=== PATIENT | female | born 1960 | race Caucasian/White ===

== ENCOUNTER → 2019-09-01 11:03 | Outpatient (CLI) | payer OTHER, SELFPAY ==
--- NOTE | ~2019-09-01 | MM_ITS ---
EXAMINATION: MM screening [facility] HISTORY: Screening mammogram TECHNIQUE: Craniocaudal and mediolateral oblique 3-D tomosynthesis images were obtained and synthetic 2-D images were generated. CAD analysis was submitted and interpreted. COMPARISON: Comparison to multiple prior studies sequentially, with oldest reviewed study dated 07/13. BREAST PARENCHYMAL COMPOSITION: The breasts are heterogeneously dense, which may obscure small masses . FINDINGS: There is no evidence of suspicious mass, calcification, or architectural distortion to sugg est malignancy in either breast. There has been no suspicious interval change. IMPRESSION: 1. No mammographic evidence of malignancy. 2. Recommend routine screening mammography in one year. BI-RADS Category 1: Negative Reviewed, dictated and finalized at location A.
== END ==
PROVIDERS: Visit Provider Obstetrics & Gynecology
DX: Z12.31 Encounter for screening mammogram for malignant neoplasm of breast (principal)
CPT/HCPCS: 77063; 77067

== ENCOUNTER → 2020-09-01 17:36 | Outpatient (CLI) | payer OTHER, SELFPAY ==
--- NOTE | ~2020-09-01 | DEXA_ITS ---
Bone Density Report Name: Marguerite Alanis Age: 60 Sex: Female Ethnicity: White Date of : 1960 Indication: osteopenia; height loss; postmenopausal Referring Provider: IRINA DE Study: Bone densitometry was performed. Exam Date: September 01, 2020 Accession number: [id number] Bone Density: Region BMD T-score Z-score Classification AP Spine (L1, L4) 0.898 -1.3 0.2 Osteopenia Femoral Neck (Left) 0.820 -0.3 1.0 Normal Total Hip (Left) 0.797 -1.2 -0.2 Osteopenia Femoral Neck (Right) 0.735 -1.0 0.3 Normal Total Hip (Right) 0.801 -1.2 -0.2 Osteopenia Total Hip Mean 0.799 -1.2 -0.2 Osteopenia World Health Organization criteria for BMD impression classify patients as: Normal (T-score at or above -1.0), Osteopenia (T-score between -1.0 and -2.5), or Osteoporosis (T-score at or below -2.5). 10-year Fracture Risk(1): Major Osteoporotic Fracture 6.8% Hip Fracture 0.4% Reported Risk Factors: [place] (), Neck BMD=0.735, BMI=22.5 (1) FRAX(R) Version 3.08. Fracture probability calculated for an untreated patient. Fracture probability may be lower if the patient has received treatment. Previous Exams: Region Exam Age BMD T-score BMD Change BMD Change Date g/cm2 vs Baseline vs Previous AP Spine(L1, L4) 09/01/2020 60 0.898 -1.3 0.001 0.001 08/09/2018 58 0.897 -1.3 Total Hip(Left) 09/01/2020 60 0.797 -1.2 -0.010 -0.010 08/09/2018 58 0.807 -1.1 Total Hip(Right) 09/01/2020 60 0.801 -1.2 -0.004 -0.004 08/09/2018 58 0.806 -1.1 *Denotes significance at 95% confidence level, LSC for AP Spine = 0.022 g/cm2, LSC for Total Hip = 0.027 g/cm2 Clinical Information Provided by Patient: Has used the following medications: Vitamin D, Calcium Patient maximum height was 66 Menopause Age: 53 No regular weight bearing exercise Drinks caffeinated beverages Onset of menses at age 16 Number of children 2 Missed period for more than 6 months in a row Impression: The patient has low bone mass, based on the Total Spine T-score. The patient has an estimated ten-year risk of hip fracture of 0.4% and an estimated ten-year risk of major fracture of 6.8%, based on the WHO FRAX algorithm. No significant bone loss was observed. Discussion: BONE DENSITY IS LOW AT ONE OR MORE SKELETAL SITES. This patient's lowest T-score is low at one or more skeletal sites. It meets the World Health Organ
== END ==
PROVIDERS: Visit Provider Obstetrics & Gynecology
DX: M85.88 Other specified disorders of bone density and structure, other site (principal); M85.852 Other specified disorders of bone density and structure, left thigh; M85.851 Other specified disorders of bone density and structure, right thigh
CPT/HCPCS: 77080

== ENCOUNTER → 2020-09-30 15:28 | Outpatient (CLI) | payer OTHER, SELFPAY ==
--- NOTE | ~2020-09-30 | MM_ITS ---
EXAMINATION: MM screening [facility] BI w umer HISTORY: Screening TECHNIQUE: Craniocaudal and mediolateral oblique 3-D tomosynthesis images were obtained and synthetic 2-D images were generated. CAD analysis was submitted and interpreted. COMPARISON: Comparison to multiple prior studies sequentially, with oldest reviewed study dated 07/2015. BREAST PARENCHYMAL COMPOSITION: There are scattered areas of fibroglandular density. FINDINGS: There is no evidence of suspicious mass, calcification, or architectural distortion to sugg est malignancy in either breast. There has been no suspicious interval change. IMPRESSION: 1. No mammographic evidence of malignancy. 2. Recommend routine screening mammography in one year. BI-RADS Category 1: Negative Reviewed, dictated and finalized at location A.
== END ==
PROVIDERS: Visit Provider Nurse Practitioner
DX: Z12.31 Encounter for screening mammogram for malignant neoplasm of breast (principal)
CPT/HCPCS: 77063; 77067

== ENCOUNTER → 2020-11-29 00:50 | Outpatient (CLI) | payer OTHER, SELFPAY ==
[2020-11-29 17:24] LABS: SARS-CoV-2 RNA PCR Negative
== END ==
PROVIDERS: PCP Family Medicine; Visit Provider Internal Medicine Gastroenterology
DX: Z01.812 Encounter for preprocedural laboratory examination (principal); Z20.822 Contact with and (suspected) exposure to COVID-19
CPT/HCPCS: C9803; U0003; U0005

== ENCOUNTER 2020-12-02 00:02 | Day surgery (SDC) | payer OTHER, SELFPAY ==
[2020-11-18 14:39] VITALS: BMI 20.5
[2020-12-02 06:20] VITALS: BP 97/68; PULSE 73; RESP 16; TEMP 36.8; O2SAT 100; BMI 20.1
[2020-12-02] MEDS: LACTATED RINGERS 1,000 ML 150 ML IV CONT (06:30)
--- NOTE | 2020-12-02 07:19 | WPDANESEPPF ---
Anes - Initial Pre Proc Eval Procedure: Operation Date: 12/02/20 07:30 Proposed Procedures p Screening Colonoscopy - Ye Pennington MD Date/Time: 12/02/20 07:19 Surgeon: Ye Pennington MD Pre Op Diagnosis: neoplasm screening Patient Data Age: 60 Gender: F Height: 5 ft 5 in Weight: 55 kg Last Vital Signs Temp 98.3 F 12/02/20 06:20 Pulse 73 12/02/20 06:20 Resp 16 12/02/20 06:20 BP 97/68 L 12/02/20 06:20 Pulse Ox 100 12/02/20 06:20 Allergies Allergy/AdvReac Type Severity Reaction Status Date / Time rabies vaccine, duck-embryo Allergy Intermediate Anaphylactic Verified 12/02/20 06:19 Shock Home Medications Medication Instructions Recorded Confirmed Type turmeric root extract 500 mg 500 mg PO DAILY 05/06/19 11/18/20 History capsule Adults Multivitamin 1 tab-cap PO DAILY 11/18/20 11/18/20 History Calcium 600 + D(3) 2 tab-cap PO DAILY 11/18/20 11/18/20 History biotin 10,000 mcg PO DAILY 11/18/20 11/18/20 History cholecalciferol (vitamin D3) 25 mcg PO DAILY 11/18/20 11/18/20 History [Vitamin D3] magnesium oxide 400 mg PO DAILY 11/18/20 11/18/20 History Patient hx anesthesia problems: none Family hx anesthesia problems: none PMFSH Past Medical History Medical History (Updated 12/02/20 @ 07:19 by Moisés Greenberg MD) Acute non-recurrent maxillary sinusitis Anxiety Contact dermatitis due to plant Family history of cardiomyopathy Fever blister Mild aortic valve regurgitation asymptomatic Mild mitral valve regurgitation asymptomatic; family history of Plantar fasciitis Seasonal allergic rhinitis Vitamin D insufficiency Family History Family History (Updated 10/13/18 @ 15:51 by DOCTOR UNKNOWN) Sibling Family history of gastrointestinal disorder Patient's sister is in good health Mother Patient's mother is , Onset Age: 70 Family history of lung cancer Father Acute myocardial infarction, Onset Age: 60 Grandparent Acute myocardial infarction, Onset Age: 76 Family history of Alzheimer's disease, Onset Age: 78 Social History Social History Smoking status: Never smoker Alcohol intake: current Drinks per week: 2 Substance use: never Substance use type: does not use Living arrangements: with family Spiritual care concerns: No Anes - Eval Final PreProcedure Day of Procedure 12/02/20 07:19 Patient weight: normal Heart: regular rate and rhythm Lungs: clear to auscultation Airway: Mallampati scale class II Neurological: alert and oriented Last oral intake: >/= 8 hours ASA classification: II Emergent: no Anesthetic plan: proceed Anesthesia type and monitoring: general GIVS and standard monitoring Informed Consent: The patient's anesthetic plan and its attendant risks and benefits were discussed with the patient/family/POA. Questions were solicited and answers provided to the satisfaction of the patient/family/POA.
[2020-12-02 07:44] VITALS: BP 96/59; PULSE 70; RESP 20; O2SAT 99
--- NOTE | 2020-12-02 07:47 | PM.HPGS ---
History of Present Illness History of Present Illness Consent: Risks, benefits, and alternatives have been discussed and questions answered. Patient agrees to proceed with procedure. Chief complaint: neoplasm screening Narrative: Marguerite Alanis is a 60 year old female referred for colon cancer screening. Review of Systems Review of Systems: All systems reviewed & are unremarkable except as noted in HPI and below PMFSH Past Medical History Medical History Acute non-recurrent maxillary sinusitis Anxiety Contact dermatitis due to plant Family history of cardiomyopathy Fever blister Mild aortic valve regurgitation asymptomatic Mild mitral valve regurgitation asymptomatic; family history of Plantar fasciitis Seasonal allergic rhinitis Vitamin D insufficiency Family History Family History Sibling Family history of gastrointestinal disorder Patient's sister is in good health Mother Patient's mother is , Onset Age: 70 Family history of lung cancer Father Acute myocardial infarction, Onset Age: 60 Grandparent Acute myocardial infarction, Onset Age: 76 Family history of Alzheimer's disease, Onset Age: 78 Social History Social History Smoking status: Never smoker Alcohol intake: current Drinks per week: 2 Substance use: never Substance use type: does not use Living arrangements: with family Spiritual care concerns: No Meds Home Medications and Allergies Home Medications Medication Instructions Recorded Confirmed Type turmeric root extract 500 mg 500 mg PO DAILY 05/06/19 11/18/20 History capsule Adults Multivitamin 1 tab-cap PO DAILY 11/18/20 11/18/20 History Calcium 600 + D(3) 2 tab-cap PO DAILY 11/18/20 11/18/20 History biotin 10,000 mcg PO DAILY 11/18/20 11/18/20 History cholecalciferol (vitamin D3) 25 mcg PO DAILY 11/18/20 11/18/20 History [Vitamin D3] magnesium oxide 400 mg PO DAILY 11/18/20 11/18/20 History Allergies Allergy/AdvReac Type Severity Reaction Status Date / Time rabies vaccine, duck-embryo Allergy Intermediate Anaphylactic Verified 12/02/20 06:19 Shock Vital Signs Vital Signs - 24 hr 12/02/20 06:20 Temperature 36.8 C Pulse Rate 73 Respiratory Rate 16 Blood Pressure 97/68 L Pulse Oximetry 100 Exam Resp: Auscultation: clear to auscultation bilaterally Cardio: Rate: regular rate Rhythm: regular rhythm GI: GI Palp: Yes Soft to palpation and No Tenderness to palpation present (GI) Assessment and Plan Assessment and plan (1) Colon cancer screening: Code(s): Z12.11 - Encounter for screening for malignant neoplasm of colon Status: Acute Assessment and Plan: Colonoscopy with possible biopsy or polypectomy or cautery or injection of substances.
[2020-12-02 07:54] VITALS: BP 96/66; PULSE 65; RESP 20; O2SAT 100
[2020-12-02 08:01] VITALS: BP 107/74; PULSE 64; RESP 18; O2SAT 100
== END 2020-12-02 08:20 | disposition home health service (06) ==
PROVIDERS: PCP Family Medicine; Visit Provider Internal Medicine Gastroenterology
PROC: 0DJD8ZZ Inspection of Lower Intestinal Tract, Via Natural or Artificial Opening Endoscopic (ICD-10-PCS; CPT 45378; principal; 2020-12-02 07:30)
DX: Z12.11 Encounter for screening for malignant neoplasm of colon (principal); F41.9 Anxiety disorder, unspecified; I35.1 Nonrheumatic aortic (valve) insufficiency; I34.0 Nonrheumatic mitral (valve) insufficiency; M72.9 Fibroblastic disorder, unspecified; E55.9 Vitamin D deficiency, unspecified
CPT/HCPCS: 45378; C9803; J2704; J7120; U0003; U0005

== ENCOUNTER → 2021-06-23 11:24 | Outpatient (CLI) | payer OTHER, SELFPAY ==
--- NOTE | ~2021-06-23 | XR_ITS ---
EXAMINATION: XR knee LT 2V DATE: 06/23/2021 11:44 INDICATION: Arthritis. Left knee pain. TECHNIQUE: 2 views of left knee standing were obtained. COMPARISON: None. FINDINGS: Bone alignment is normal. No fracture. Joint spaces are well maintained. There is no knee j oint effusion. IMPRESSION: 1. Normal left knee. Reviewed, dictated and finalized at location A. 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 Normal left knee.
== END ==
PROVIDERS: PCP Internal Medicine; Visit Provider Internal Medicine
DX: M17.12 Unilateral primary osteoarthritis, left knee (principal)
CPT/HCPCS: 73560

== ENCOUNTER → 2021-11-27 13:49 | Outpatient (CLI) | payer OTHER, SELFPAY ==
--- NOTE | ~2021-11-27 | MM_ITS ---
EXAMINATION: MM screening [facility] w [facility] HISTORY: Screening TECHNIQUE: Craniocaudal and mediolateral oblique 3-D tomosynthesis images were obtained and synthetic 2-D images were generated. CAD analysis was submitted and interpreted. COMPARISON: Comparison to multiple prior studies sequentially, with oldest reviewed study dated 11/2016. BREAST PARENCHYMAL COMPOSITION: The breasts are heterogenously dense, which may obscure small masses FINDINGS: There is no evidence of suspicious mass, calcification, or architectural distortion to sugg est malignancy in either breast. There has been no suspicious interval change. IMPRESSION: 1. No mammographic evidence of malignancy. 2. Recommend routine screening mammography in one year. BI-RADS Category 1: Negative Reviewed, dictated and finalized at location A.
== END ==
PROVIDERS: PCP Family Medicine; Visit Provider Obstetrics & Gynecology Gynecology
DX: Z12.31 Encounter for screening mammogram for malignant neoplasm of breast (principal)
CPT/HCPCS: 77063; 77067

== ENCOUNTER → 2023-05-22 12:45 | Outpatient (CLI) | payer OTHER, SELFPAY ==
--- NOTE | ~2023-05-22 | MM_ITS ---
EXAMINATION: MM screening [facility] BI w umer HISTORY: Screening mammogram TECHNIQUE: Craniocaudal and mediolateral oblique 3-D tomosynthesis images were obtained and synthetic 2-D images were generated. CAD analysis was submitted and interpreted. COMPARISON: 11/27/2021, 09/30/2020, 09/01/2019 BREAST PARENCHYMAL COMPOSITION: There are scattered areas of fibroglandular density. FINDINGS: No suspicious mass, calcification, or architectural distortion are identified in either kassie ast to suggest malignancy. There has been no suspicious interval change. IMPRESSION: 1. No mammographic evidence of malignancy. 2. Recommend routine screening mammography in one year. BI-RADS Category 1: Negative Reviewed, dictated and finalized at location A. 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
== END ==
PROVIDERS: PCP Family Medicine; Visit Provider Nurse Practitioner
DX: Z12.31 Encounter for screening mammogram for malignant neoplasm of breast (principal)
CPT/HCPCS: 77063; 77067

== ENCOUNTER 2023-10-28 10:56 | Outpatient (CLI) | payer OTHER, SELFPAY ==
--- NOTE | ~2023-10-28 | DEXA_ITS ---
Bone Density Report Name: TOYA WONG Age: 63 Sex: Female Ethnicity: White Date of : 1960 Indication: osteopenia; height loss; Referring Provider: Elizabeth, Soila Study: Bone densitometry was performed. Exam Date: October 28, 2023 Accession number: [id number] Bone Density: Region BMD T-score Z-score Classification AP Spine (L1, L4) 0.902 -1.2 0.4 Osteopenia Femoral Neck (Left) 0.722 -1.1 0.3 Osteopenia Total Hip (Left) 0.710 -1.9 -0.8 Osteopenia Femoral Neck (Right) 0.665 -1.7 -0.2 Osteopenia Total Hip (Right) 0.739 -1.7 -0.5 Osteopenia Total Hip Mean 0.725 -1.8 -0.7 Osteopenia World Health Organization criteria for BMD impression classify patients as: Normal (T-score at or above -1.0), Osteopenia (T-score between -1.0 and -2.5), or Osteoporosis (T-score at or below -2.5). 10-year Fracture Risk(1): Major Osteoporotic Fracture 8.2% Hip Fracture 0.9% Reported Risk Factors: [place] (), Neck BMD=0.665, BMI=21.0 (1) FRAX(R) Version 3.08. Fracture probability calculated for an untreated patient. Fracture probability may be lower if the patient has received treatment. Previous Exams: Region Exam Age BMD T-score BMD Change BMD Change Date g/cm2 vs Baseline vs Previous AP Spine(L1, L4) 10/28/2023 63 0.902 -1.2 0.006 0.005 09/01/2020 60 0.898 -1.3 0.001 0.001 08/09/2018 58 0.897 -1.3 Total Hip(Left) 10/28/2023 63 0.710 -1.9 -0.097* -0.087* 09/01/2020 60 0.797 -1.2 -0.010 -0.010 08/09/2018 58 0.807 -1.1 Total Hip(Right) 10/28/2023 63 0.739 -1.7 -0.066* -0.062* 09/01/2020 60 0.801 -1.2 -0.004 -0.004 08/09/2018 58 0.806 -1.1 *Denotes significance at 95% confidence level, LSC for AP Spine = 0.022 g/cm2, LSC for Total Hip = 0.027 g/cm2 Clinical Information Provided by Patient: Has used the following medications: Vitamin D, Calcium, MTV Patient maximum height was 66 Menopause Age: 53 Drinks caffeinated beverages Onset of menses at age 16 Number of children 2 Missed period for more than 6 months in a row Impression: The patient has low bone mass, based on the Left Total Hip T-score. The patient has an estimated ten-year risk of hip fracture of 0.9% and an estimated ten-year risk of major fracture of 8.2%, based on the WHO FRAX algorithm. The BMD for the Total Hip(Left) decreased
== END 2023-10-28 10:57 ==
LOC: MICIMG 10:58
PROVIDERS: PCP Family Medicine; Visit Provider Nurse Practitioner
DX: M85.88 Other specified disorders of bone density and structure, other site (principal); M85.852 Other specified disorders of bone density and structure, left thigh; M85.851 Other specified disorders of bone density and structure, right thigh
CPT/HCPCS: 77080

== ENCOUNTER 2024-05-25 10:07 | Outpatient (CLI) | payer OTHER, SELFPAY ==
--- NOTE | ~2024-05-25 | MM_ITS ---
EXAMINATION: MM screening [facility] w [facility] HISTORY: Screening TECHNIQUE: Craniocaudal and mediolateral oblique 3-D tomosynthesis images were obtained and synthetic 2-D images were generated. CAD analysis was submitted and interpreted. COMPARISON: Comparison to multiple prior studies sequentially, with oldest reviewed study dated 01/2018. BREAST PARENCHYMAL COMPOSITION: Dense: The breasts are heterogeneously dense, which may obscure small masses FINDINGS: There is no evidence of suspicious mass, calcification, or architectural distortion to sugg est malignancy in either breast. There has been no suspicious interval change. IMPRESSION: 1. No mammographic evidence of malignancy. 2. Recommend routine screening mammography in one year. BI-RADS Category 1: Negative Reviewed, dictated and finalized at location B. K PAVER
== END 2024-05-25 10:08 | disposition home or self-care (01) ==
PROVIDERS: PCP Family Medicine; Visit Provider Nurse Practitioner
DX: Z12.31 Encounter for screening mammogram for malignant neoplasm of breast (principal)
CPT/HCPCS: 77063; 77067

== ENCOUNTER 2024-08-24 15:34 | Outpatient (CLI) | payer OTHER, SELFPAY ==
--- NOTE | ~2024-08-24 | US_ITS ---
Pelvic ultrasound. Clinical History: Postmenopausal bleeding Technique: Realtime transabdominal and transvaginal scanning of the pelvis was performed. Color flow Doppler and Doppler spectral analysis were performed. Findings: The uterus is retroverted, and measures 4.1 x 1.7 x 4.1 cm.. The endometrial stripe has a thickness of 4 mm. Probable uterine fibroid measures 2.2 cm in diameter. Additional smaller fibroid m easures 1.2 cm a third fibroid measures 1.9 cm.. Neither ovary clearly visualized. No other adnexal mass seen. There is no evidence of free fluid in the cul de sac. Impression: Uterine fibroids, as above. No abnormal endometrial thickening identified. Reviewed, dictated and finalized at location . Impression: Uterine fibroids, as above. No abnormal endometrial thickening identified.
== END 2024-08-24 15:35 | disposition home or self-care (01) ==
LOC: MICIMG 15:34
PROVIDERS: Visit Provider Obstetrics & Gynecology Gynecology
DX: D25.9 Leiomyoma of uterus, unspecified (principal)
CPT/HCPCS: 76830

== ENCOUNTER 2024-09-28 00:41 | Day surgery (SDC) | payer OTHER, SELFPAY ==
--- NOTE | 2024-09-17 11:23 | PC.NURSE ---
Report to the Outpatient Waiting Room, entrance under the green pavilion located off [facility], at time _0730_ on date _[id number]_. Planned Procedure Time: _0930_.? Time changes happen often and if your time is changed the preop area will call you the afternoon before. - You and your visitor will be asked to self-screen and do not enter if you have any COVID symptoms. Please call surgeon if you need to reschedule. - A mask is optional within the hospital at this time. Patients may have clear liquids (water, carbonated beverages, clear teas, apple juice) until 3 hours prior to surgery with a maximum of 20 ounces. - No food from midnight until time of surgery and no smoking, or chewing tobacco (or any form of nicotine). No chewing gum, candy or mints. Take only the following medications with a SIP of water on the morning of surgery: ___None____ DO NOT STOP ANY OF YOUR OTHER PRESCRIPTION MEDICATIONS PRIOR TO SURGERY EXCEPT THE FOLLOWING Hold all vitamins and supplements for 3 days per anesthesiologist. Medications to discontinue per physician Date to take last [phone] Please no make-up, nail belizean, hairspray, perfume, deodorant, or body powder the day of surgery.? No jewelry (including any body piercings) or valuables the day of surgery, leave them at home.? Please take a shower or bath the night before, or the morning of, surgery with an antibacterial soap.? Wear comfortable, loose fitting clothing.? - Jewelry must be removed prior to entering the operating room.? Rings and piercings that are not removed may be cut off. - The hospital will not accept responsibility for valuables.? - Please leave all valuables, including medications, at home the day of surgery. If you are going home after surgery, a licensed local flatbed driver must drive you home.? - NO public transportation without another adult if you receive anesthesia. - We recommend that an adult stay with you for 24 hours following discharge. - We also recommend that you do not drive, make important decision, drink alcoholic beverages, or take any drugs that were not prescribed by your health care provider for at least 24 hours after your discharge time. Follow any additional instructions given to you from your surgeon. Telephone instructions given to __Jayne___and asked if any additional questions and then verbalized understanding. Patient advised to call surgeon office or pre surgery nurse liaison [phone] if any additional questions.
--- OUTSIDE RECORDS SUMMARY | 2024-09-28 00:43 | XMS_ITS | Clinical Summary ---
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 Gender Identity Not on file Sexual Orientation Not on file Plan of Treatment Health Maintenance Due Date Last Done Comments Hepatitis C Virus (HCV) Screening 1960 TdaP Immunization 1960 Pap Smear 02/16/1981 Cervical Cancer Screening (CCS) 02/16/1990 HPV/Cotest 02/16/1990 Colonoscopy 02/16/2005 Colorectal Cancer Screening 02/16/2005 Cologuard 02/16/2010 Immunochemical Fecal Occult Blood 02/16/2010 Mammogram 02/16/2010 Pneumococcal Immunization (5 0+ years) (1 of 1 - PCV) 02/16/2010 Zoster Immunization (1 of 2) 02/16/2010 Influenza Immunization (#1) 02/16/202403/17, 03/17/2015 SARS-COV-2 Immunization ( season) 2024 03/19/2021, 08/11/2020, 07/21/2020 Respiratory Syncytial Virus (RSV) Immunization (Adult) (1 - 1-dose 75+ series) 02/16/2035 Hepatitis B Immunization Aged Out No longer eligible based on patient's age to complete this topic Meningococcal Immunization (ACWY) Aged Out No longer eligible b ased on patient's age to complete this topic Pneumococcal Immunization Combined Aged Out No longer eligible b ased on patient's age to complete this topic Rotavirus Immunization Aged Out No lo nger eligible based on patient's age to complete this topic
[2024-09-28 07:20] VITALS: BP 106/72; PULSE 62; RESP 16; TEMP 36.6; O2SAT 100; BMI 20.5
--- NOTE | 2024-09-28 07:29 | WPDHPUPDATE1 ---
History and Physical Update Update Date/Time: 09/28/24 07:29 History and Physical has been reviewed, including an updated exam of the patient. There are NO changes in the patient's condition. Risks, benefits, and alternatives have been discussed and questions answered. Patient agrees to proceed with procedure.
--- NOTE | 2024-09-28 07:29 | PM.HPGS ---
History of Present Illness History of Present Illness Consent: Risks, benefits, and alternatives have been discussed and questions answered. Patient agrees to proceed with procedure. Chief complaint: Post Menopausal Bleeding Narrative: Marguerite Alanis is a 64 year old female who presented for her well-woman exam and Pap smear revealed blood present. Pelvic ultrasound was performed and did reveal a slightly thickened endometrial stripe. In addition there were fibroids noted. Due to blood being present and a thickened endometrium, it was recommended to proceed with D&C hysteroscopy. Risks of infection, bleeding perforation, and possible pathology. It was discussed that the fibroids would not be removed unless they were obscuring the view of the endometrium. Patient voices understanding and agrees to proceed. [facility] Past Medical History Medical History (Updated 09/28/24 @ 07:33 by Mechelle Thornton MD) History of (normal spontaneous vaginal delivery) X2 BMI 20.0-20.9, adult Osteopenia after menopause DEXA bone density 09/01/2020 with T-score -1.3 of the lumbar spine, -1.2 left hip, -1.2 right hip.DEXA 10/28/2023 with T-score -1.2 lumbar spine, -1.9 left hip, -1.8 right hip. Anxiety Vitamin D insufficiency Level normal at 43 on 07/16/2022. Normal at 44 on 06/21/2023. vitamin-D level at 57 on 07/17/2024. Surgical History Surgical History (Updated 09/28/24 @ 07:32 by Mechelle Thornton MD) History of foot surgery History of elbow surgery Family History Family History Sibling Family history of gastrointestinal disorder Patient's sister is in good health Mother Patient's mother is , Onset Age: 70 Family history of lung cancer Father Acute myocardial infarction, Onset Age: 60 Grandparent Acute myocardial infarction, Onset Age: 76 Family history of Alzheimer's disease, Onset Age: 78 Social History Social History Smoking status: Never smoker Alcohol intake: current Drinks per week: 2 Substance use: never Substance use type: does not use Lack of Transportation: No Lack of Food: Never True Current Housing: I Have Housing Concerned About Future Housing: No Difficulty Paying Gas/Electric Bills: No Difficulty Paying for Meds: No Currently Unemployed: No Education: Master's Degree or Higher Difficulty w/ Childcare or Family Care: No Living arrangements: with family Spiritual care concerns: No Meds Home Medications and Allergies Home Medications ?Medication ?Instructions ?Recorded ?Confirmed ?Type Adults Multivitamin 1 tab-cap PO DAILY 11/18/20 09/17/24 History Calcium 600 + D(3) 1 tab-cap PO DAILY 07/30/22 09/17/24 History biotin 10,000 mcg capsule 5,000 mcg PO DAILY 07/30/22 09/17/24 History cholecalciferol (vitamin D3) 25 1,000 unit PO DAILY 07/30/22 09/17/24 History mcg (1,000 unit) tablet (Vitamin D3) famciclovir 500 mg tablet 500 mg PO .COMPLEX PRN fever 07/30/22 09/17/24 Rx blister #30 tabs magnesium oxide 500 mg PO DAILY 07/30/22 09/17/24 History risedronate 35 mg tablet 35 mg PO WEEKLY #4 tabs 08/03/24 09/17/24 Rx Allergies Allergy/AdvReac Type Severity Reaction Status Date / Time rabies vaccine, duck-embryo Allergy Intermediate Anaphylactic Verified 09/17/24 11:14 Shock Exam Const: General: healthy appearing and alert Orientation/consciousness: patient oriented x3 Resp: Effort & Inspection: normal respiratory effort GI: GI Palp: Yes Soft to palpation, No Tenderness to palpation present (GI) and No Palpable mass present : External Female Exam: normal external appearance Speculum Exam - Vagina: normal appearance of the vagina and normal vaginal discharge Speculum Exam - Cervix: normal appearance of the cervix Bimanual exam- vagina & uterus: uterine size normal and consistency normal Bimanual Exam- Adnexa, other: normal adnexae and No adnexal tenderness Neuro: General: patient oriented x3 Assessment and Plan Assessment and plan (1) Thickened endometrium: Code(s): R93.89 - Abnormal findings on diagnostic imaging of other specified body structures Status: Acute Assessment and Plan: No visible bleeding but blood on. Plan is to proceed with D&C hysteroscopy
[2024-09-28] MEDS: LACTATED RINGERS 1,000 ML 30 ML IV CONT ×2 (07:45→09:56)
[2024-09-28] MEDS: ACETAMINOPHEN 500 MG TABLET 1000 MG PO (07:48)
--- NOTE | 2024-09-28 08:49 | P.PNAN_ITS ---
Anes - Initial Pre Proc Eval Procedure: Operation Date: 09/28/24 09:30 Proposed Procedures p Hysteroscopy Dilation and Curettage - Mechelle Thornton MD Date/Time: 09/28/24 08:49 Surgeon: Mechelle Thornton MD Pre Op Diagnosis: Post Menopausal Bleeding Patient Data Age: 64 Gender: F Height: 1.65 m Weight: 56 kg Last Vital Signs Temp 36.6 C 09/28/24 07:20 Pulse 62 09/28/24 07:20 Resp 16 09/28/24 07:20 BP 106/72 09/28/24 07:20 Pulse Ox 100 09/28/24 07:20 O2 Del Method Room Air 09/28/24 07:20 Allergies Allergy/AdvReac Type Severity Reaction Status Date / Time rabies vaccine, duck-embryo Allergy Intermediate Anaphylactic Verified 09/28/24 08:01 Shock Home Medications ?Medication ?Instructions ?Recorded ?Confirmed ?Type Adults Multivitamin 1 tab-cap PO DAILY 11/18/20 09/28/24 History Calcium 600 + D(3) 1 tab-cap PO DAILY 07/30/22 09/28/24 History biotin 10,000 mcg capsule 5,000 mcg PO DAILY 07/30/22 09/28/24 History cholecalciferol (vitamin D3) 25 1,000 unit PO DAILY 07/30/22 09/28/24 History mcg (1,000 unit) tablet (Vitamin D3) famciclovir 500 mg tablet 500 mg PO .COMPLEX PRN fever 07/30/22 09/17/24 Rx blister #30 tabs magnesium oxide 500 mg PO DAILY 07/30/22 09/28/24 History risedronate 35 mg tablet 35 mg PO WEEKLY #4 tabs 08/03/24 09/17/24 Rx Patient hx anesthesia problems: none Family hx anesthesia problems: none Results Review: All pre-operative results and documents have been reviewed as part of the pre- operative evaluation. [facility] Past Medical History Medical History History of (normal spontaneous vaginal delivery) X2 BMI 20.0-20.9, adult Osteopenia after menopause DEXA bone density 09/01/2020 with T-score -1.3 of the lumbar spine, -1.2 left hip, -1.2 right hip.DEXA 10/28/2023 with T-score -1.2 lumbar spine, -1.9 left hip, -1.8 right hip. Anxiety Vitamin D insufficiency Level normal at 43 on 07/16/2022. Normal at 44 on 06/21/2023. vitamin-D level at 57 on 07/17/2024. Surgical History Surgical History History of foot surgery History of elbow surgery Family History Family History Sibling Family history of gastrointestinal disorder Patient's sister is in good health Mother Patient's mother is , Onset Age: 70 Family history of lung cancer Father Acute myocardial infarction, Onset Age: 60 Grandparent Acute myocardial infarction, Onset Age: 76 Family history of Alzheimer's disease, Onset Age: 78 Social History Social History Smoking status: Never smoker Alcohol intake: current Drinks per week: 2 Substance use: never Substance use type: does not use Lack of Transportation: No Lack of Food: Never True Current Housing: I Have Housing Concerned About Future Housing: No Difficulty Paying Gas/Electric Bills: No Difficulty Paying for Meds: No Currently Unemployed: No Education: Master's Degree or Higher Difficulty w/ Childcare or Family Care: No Living arrangements: with family Spiritual care concerns: No Anes - Eval Final PreProcedure Day of Procedure 09/28/24 08:49 Patient weight: normal Heart: regular rate and rhythm Lungs: clear to auscultation Airway: Mallampati scale class II Neurological: alert and oriented Last oral intake: >/= 8 hours ASA classification: II Emergent: no Anesthetic plan: proceed Anesthesia type and monitoring: general GIVS and standard monitoring Results Review: All pre-operative results and documents have been reviewed as part of the pre- operative evaluation. Informed Consent: The patient's anesthetic plan and its attendant risks and benefits were discussed with the patient/family/POA. Questions were solicited and answers provided to the satisfaction of the patient/family/POA.
--- NOTE | 2024-09-28 09:45 | P.OP_ITS ---
Procedure Note - Detailed Date of Procedure 09/28/24 Pre-op Diagnosis Post Menopausal Bleeding Post-op Diagnosis Same Procedure Performed D&C hysteroscopy Surgeon Mechelle Thornton MD Anesthesia MAC Findings Cervical stenosis is encountered. The uterus was retroverted and 8cm. The endometrium appears atrophic. Description of Procedure The patient was taken to the operating room and placed under anesthesia in the dorsal lithotomy position. She was prepped and draped in usual sterile fashion. [place] speculum was placed in the vagina and the cervix grasped on the anterior lip with a tenaculum. External cervical stenosis was encountered and the os Finders are needed to open the external and internal cervix. Uterus is noted to be retroverted. The sound is still unable to pass. The cervix is serially dilated to a 5 [place]. The is uterus in sounds to 8cm. The diagnostic hysteroscope was then placed. Significant atrophic appearance is noted. The hysteroscope was removed and the sharp curette used to curette the endometrium. Minimal material was obtained consistent with the atrophic appearance. All instruments are removed. Sponge, needle, and instrument counts are correct per the OR staff. Estimated Blood Loss 5 Drains No Packing No Pathology Yes (Endometrial curettings) Complications No immediate complications Condition Stable Disposition PACU
[2024-09-28 09:48] VITALS: BP 89/55; PULSE 55; RESP 12; O2SAT 98
[2024-09-28 10:15] VITALS: BP 113/66; PULSE 60; RESP 14; O2SAT 100
[2024-09-28 10:45] VITALS: BP 120/70; PULSE 62; RESP 16
== END 2024-09-28 10:55 | disposition home or self-care (01) ==
PROVIDERS: PCP Family Medicine; Visit Provider Obstetrics & Gynecology Gynecology
PROC: 0U5B8ZZ Destruction of Endometrium, Via Natural or Artificial Opening Endoscopic (ICD-10-PCS; CPT 58563; principal; 2024-09-28 09:30)
DX: R93.89 Abnormal findings on diagnostic imaging of other specified body structures (principal); N88.2 Stricture and stenosis of cervix uteri; F41.9 Anxiety disorder, unspecified; E55.9 Vitamin D deficiency, unspecified; M85.88 Other specified disorders of bone density and structure, other site; Z98.890 Other specified postprocedural states; Z80.1 Family history of malignant neoplasm of trachea, bronchus and lung; Z82.49 Family history of ischemic heart disease and other diseases of the circulatory system
CPT/HCPCS: 58558; 88305; A9270; J1100; J2003; J2250; J2405; J2704; J3010; J7120

== ENCOUNTER 2025-01-29 06:32 | Day surgery (SDC) | payer OTHER, SELFPAY ==
--- NOTE | 2025-01-26 09:11 | SUR.PREOP ---
Report to the Outpatient Waiting Room, entrance under the green pavilion located off [facility], at time 6:00a.m. on date 01/29/2025. Planned Procedure Time: 7:30a.m.? Time changes happen often and if your time is changed the preop area will call you the afternoon before. - You and your visitor will be asked to self-screen and do not enter if you have any COVID symptoms. Please call surgeon if you need to reschedule. - A mask is optional within the hospital at this time. Patients may have clear liquids (water, carbonated beverages, clear teas, apple juice) until 3 hours prior to surgery with a maximum of 20 ounces. - No food from midnight until time of surgery and no smoking, or chewing tobacco (or any form of nicotine). No chewing gum, candy or mints. Take only the following medications with a SIP of water on the morning of surgery: NONE DO NOT STOP ANY OF YOUR OTHER PRESCRIPTION MEDICATIONS PRIOR TO SURGERY EXCEPT THE FOLLOWING Hold all vitamins and supplements for 3 days per anesthesiologist. Medications to discontinue per physician Vitamins and Supplements Date to take last dose 01/26/2025 Please no make-up, nail hebrew, hairspray, perfume, deodorant, or body powder the day of surgery.? No jewelry (including any body piercings) or valuables the day of surgery, leave them at home.? Please take a shower or bath the night before, or the morning of, surgery with an antibacterial soap.? Wear comfortable, loose fitting clothing.? Children are encouraged to wear pajamas. - Jewelry must be removed prior to entering the operating room.? Rings and piercings that are not removed may be cut off. - The hospital will not accept responsibility for valuables.? - Please leave all valuables, including medications, at home the day of surgery. If you are going home after surgery, a licensed refuse driver must drive you home.? - NO public transportation without another adult if you receive anesthesia. - We recommend that an adult stay with you for 24 hours following discharge. - We also recommend that you do not drive, make important decision, drink alcoholic beverages, or take any drugs that were not prescribed by your health care provider for at least 24 hours after your discharge time. Follow any additional instructions given to you from your surgeon. Telephone instructions given to Marguerite Kriegel and asked if any additional questions and then verbalized understanding. Patient advised to call surgeon office or pre surgery nurse liaison [phone] if any additional questions.
[2025-01-26 09:14] VITALS: BMI 20.9
[2025-01-29 06:09] VITALS: BP 114/68; PULSE 65; RESP 16; TEMP 36.8; O2SAT 99; BMI 21.1
--- OUTSIDE RECORDS SUMMARY | 2025-01-29 06:34 | XMS_ITS | Clinical Summary ---
Author Organization [facility] Care Team Providers Care Roll Forming Supervisor Name Role Phone Unavailable Primary Care Provider Unavailabl e Social History Tobacco Use Types Packs/Day Years Used Date Smoking Tobacco: Never Assessed Comments Unknown Sex and Gender Information Value Date Recorded Sex Assigned at Not on file Legal Sex Female 9:27 AM [employer] Gender Identity Not on file Sexual Orientation Not on file Plan of Treatment Health Maintenance Due Date Last Done Comments Hepatitis C Virus (HCV) Screening 1960 TdaP Immunization 1960 Pap Smear 02/16/1981 Cervical Cancer Screening (CCS) 02/16/1990 HPV/Cotest 02/16/1990 Cologuard 02/16/2005 Colonoscopy 02/16/2005 Colorectal Cancer Screening 02/16/2005 Immunochemical Fecal Occult Blood 02/16/2005 Pneumococcal Immunization (5 0+ years) (1 of 1 - PCV) 02/16/2010 Zoster Immunization (1 of 2) 02/16/2010 SARS-COV-2 Immunization ( season) 2024 03/19/2021, 08/11/2020, 07/21/2020 Influenza Immunization (#1) 02/15/202503/17, 03/17/2015 Respiratory Syncytial Virus (RSV) Immunization (Adult) (1 - 1-dose 75+ series) 02/16/2035 Hepatitis B Immunization Aged Out No longer eligible based on patient's age to complete this topic Human Papillomavirus (HPV) Immunization Aged Out No longer eligible b ased on patient's age to complete this topic Meningococcal Immunization (ACWY) Aged Out No longer eligible b ased on patient's age to complete this topic Rotavirus Immunization Aged Out No lo nger eligible based on patient's age to complete this topic
[2025-01-29] MEDS: LACTATED RINGERS 1,000 ML 30 ML IV CONT ×2 (06:40→08:26)
--- NOTE | 2025-01-29 06:51 | P.PNAN_ITS ---
Anes - Initial Pre Proc Eval Procedure: Operation Date: 01/29/25 07:30 Proposed Procedures p Partial Plantar Fasciectomy Right Foot - Doug Sutton Jr., DPM Date/Time: 01/29/25 06:51 Surgeon: Doug Sutton Jr., DPM Pre Op Diagnosis: right foot plantar fasciitis Patient Data Age: 64 Gender: F Height: 1.63 m Weight: 55.8 kg Last Vital Signs Temp 98.3 F 01/29/25 06:09 Pulse 65 01/29/25 06:09 Resp 16 01/29/25 06:09 BP 114/68 01/29/25 06:09 Pulse Ox 99 01/29/25 06:09 Allergies Allergy/AdvReac Type Severity Reaction Status Date / Time rabies vaccine, duck-embryo Allergy Intermediate Anaphylactic Verified 01/29/25 06:19 Shock Home Medications ?Medication ?Instructions ?Recorded ?Confirmed ?Type Adults Multivitamin 1 tab-cap PO DAILY 11/18/20 01/29/25 History Calcium 600 + D(3) 1 tab-cap PO DAILY 07/30/22 01/29/25 History biotin 10,000 mcg capsule 5,000 mcg PO DAILY 07/30/22 01/29/25 History cholecalciferol (vitamin D3) 25 1,000 unit PO DAILY 07/30/22 01/29/25 History mcg (1,000 unit) tablet (Vitamin D3) famciclovir 500 mg tablet 500 mg PO .COMPLEX PRN fever 07/30/22 01/26/25 Rx blister #30 tabs magnesium oxide 500 mg PO DAILY 07/30/22 01/29/25 History risedronate 35 mg tablet 35 mg PO WEEKLY #4 tabs 08/03/24 01/29/25 Rx Patient hx anesthesia problems: none Family hx anesthesia problems: none Results Review: All pre-operative results and documents have been reviewed as part of the pre- operative evaluation. [facility] Past Medical History Medical History Bradycardia Lightheadedness History of (normal spontaneous vaginal delivery) X2 BMI 20.0-20.9, adult Osteopenia after menopause DEXA bone density 09/01/2020 with T-score -1.3 of the lumbar spine, -1.2 left hip, -1.2 right hip.DEXA 10/28/2023 with T-score -1.2 lumbar spine, -1.9 left hip, -1.8 right hip. Anxiety Vitamin D insufficiency Level normal at 43 on 07/16/2022. Normal at 44 on 06/21/2023. vitamin-D level at 57 on 07/17/2024. Surgical History Surgical History History of foot surgery History of elbow surgery Family History Family History Sibling Family history of gastrointestinal disorder Patient's sister is in good health Mother Patient's mother is , Onset Age: 70 Family history of lung cancer Father Acute myocardial infarction, Onset Age: 60 Grandparent Acute myocardial infarction, Onset Age: 76 Family history of Alzheimer's disease, Onset Age: 78 Social History Social History Smoking status: Never smoker Alcohol intake: current Drinks per week: 1 Substance use: never Substance use type: does not use Lack of Transportation: No Lack of Food: Never True Current Housing: I Have Housing Concerned About Future Housing: No Difficulty Paying Gas/Electric Bills: No Difficulty Paying for Meds: No Currently Unemployed: No Education: Master's Degree or Higher Difficulty w/ Childcare or Family Care: No Living arrangements: with family Spiritual care concerns: No Anes - Eval Final PreProcedure Day of Procedure 01/29/25 06:51 Patient weight: normal and thin Lungs: normal air movement Airway: Mallampati scale class 1 Neurological: alert and oriented Last oral intake: >/= 8 hours ASA classification: I Emergent: no Anesthetic plan: proceed Anesthesia type and monitoring: general GIVS and standard monitoring Results Review: All pre-operative results and documents have been reviewed as part of the pre-o perative evaluation. Active w swimming/walking/wts, no cp or sob. Informed Consent: The patient's anesthetic plan and its attendant risks and benefits were discussed with the patient/family/POA. Questions were solicited and answers provided to the satisfaction of the patient/family/POA.
--- NOTE | 2025-01-29 07:10 | WPDHPUPDATE1 ---
History and Physical Update Update Date/Time: 01/29/25 07:10 History and Physical has been reviewed, including an updated exam of the patient. There are NO changes in the patient's condition. Risks, benefits, and alternatives have been discussed and questions answered. Patient agrees to proceed with procedure.
[2025-01-29] MEDS: LIDOCAINE 2% LOCAL INJ 20 ML VIAL 10 ML INFILTRATE (07:23)
[2025-01-29] MEDS: BUPivacaine HCL 0.5% 10 ML AMP INFILTRATE (07:23)
[2025-01-29] MEDS: ceFAZolin 2 GM in SODIUM CHLORIDE 0.9% IV 50 ML 100 ML IVPB (07:23)
[2025-01-29 08:06] VITALS: BP 89/49; PULSE 58; RESP 16; O2SAT 97
--- NOTE | 2025-01-29 08:26 | W.PM.PROC2 ---
Procedure Note - Detailed Date of Procedure 01/29/25 Pre-op Diagnosis right foot plantar fasciitis Post-op Diagnosis Same Procedure Performed Partial plantar fasciectomy right foot Surgeon Doug Sutton Jr., DPM Anesthesia MAC and Local Indications Painful inferior right heel Findings Narrow thick origin of the plantar fascia Description of Procedure Under mild sedation, the patient was brought in to the operating room, placed on the operating table in the supine position. A pneumatic ankle tourniquet was placed about the patient's ankle. Following general anesthesia, local anesthesia was obtained about the affected lower extremity utilizing 20 mL of a one to mix of 2% Lidocaine plain and 0.5% Marcaine plain to the tibial nerve. The foot was then scrubbed, prepped, and draped in the usual aseptic manner. An [place] bandage was then used to exsanguinate the patient's foot and the pneumatic ankle tourniquet was then inflated. Next, an incision was made starting distal to the medial tubercle of the calcaneus extending distally 3cm. All bleeders were cauterized as necessary. Next the dissection was continued down to the plantar fascia it was exposed medially and laterally with [place] retractors. Two thirds of the medial plantar fascia was transected and a 4mm portion was also cut and discarded. The wound site was flushed with sterile saline. The deep subcutaneous tissue was reapproximated with 3.0 Vicryl and the skin was reapproximated with 2.0 Prolene and 3.0 Prolene in Vertical mattress and Simple interrupted suture technique. Upon completion of the procedure, the plantar incision was dressed with adaptic, 4x4 gauze, kerlix and coban. The pneumatic ankle tourniquet was then deflated and a prompt hyperemic response was noted to all digits of the affected foot. A CAM Walker boot will be applied in PACU. The patient did very well with the procedure and the anesthesia. The patient was transferred to the recovery room with vital signs stable and vascular status intact to all toes of the affected foot. Following a period of postoperative monitoring, the patient will be discharged home on the following written and oral postoperative instructions: 1. The patient should keep the dressing clean, dry, and intact. Use a cast protector bag with showers. 2. The patient will be non weight bearing with a knee scooter for one week followed by two weeks of protected weight bearing with CAM walker boot. 3. Patient should ice and elevate the affected foot when at rest. 4. The patient is to contact Dr. Sutton for all postop care and if any problems arise. 5. Prescriptions were written for Percocet 5/325 dispensed 40 to be taken 1 p.o. q.4-6 hours as needed for severe pain. . Estimated Blood Loss 1 Drains No Packing No Pathology None sent Complications No immediate complications Condition Stable Disposition Same day
[2025-01-29 08:30] VITALS: BP 98/58; PULSE 59; RESP 16; O2SAT 99
[2025-01-29 09:00] VITALS: BP 129/66; PULSE 52; RESP 16
== END 2025-01-29 09:15 | disposition home or self-care (01) ==
PROVIDERS: PCP Family Medicine; Visit Provider Podiatrist Foot & Ankle Surgery
PROC: (CPT 28119; principal; 2025-01-29 07:30)
DX: M72.2 Plantar fascial fibromatosis (principal); E55.9 Vitamin D deficiency, unspecified; F41.9 Anxiety disorder, unspecified; R00.1 Bradycardia, unspecified; M85.88 Other specified disorders of bone density and structure, other site; M19.042 Primary osteoarthritis, left hand; M19.041 Primary osteoarthritis, right hand; L25.9 Unspecified contact dermatitis, unspecified cause; Z98.890 Other specified postprocedural states; Z80.1 Family history of malignant neoplasm of trachea, bronchus and lung; Z82.49 Family history of ischemic heart disease and other diseases of the circulatory system
CPT/HCPCS: 28060; J0690; J1100; J2003; J2250; J2405; J2704; J3010; J7120

== ENCOUNTER 2025-05-27 10:17 | Outpatient (CLI) | payer OTHER, SELFPAY ==
--- NOTE | ~2025-05-27 | MM_ITS ---
EXAMINATION: MM screening patrice BI w umer HISTORY: Screening. TECHNIQUE: Craniocaudal and mediolateral oblique 3-D tomosynthesis images were obtained and synthetic 2-D images were generated. CAD analysis was submitted and interpreted. COMPARISON: 2023, 2022, and 2021. BREAST PARENCHYMAL COMPOSITION: Dense: The breasts are heterogeneously dense FINDINGS: No suspicious masses are seen. There are no suspicious calcifications. No unexplained architectural distortion is seen. There are no skin or nipple abnormalities identified. There is no adenopathy seen on the images submitted. IMPRESSION: No mammographic evidence to suggest malignancy is seen. The patient may return to screening mammography as per ACR guidelines. BI-RADS 1 - Negative. Reviewed, dictated and finalized at location [facility]. [facility]
== END 2025-05-27 10:18 | disposition home or self-care (01) ==
LOC: MICIMG 10:18
PROVIDERS: PCP Family Medicine; Visit Provider Obstetrics & Gynecology Gynecology
DX: Z12.31 Encounter for screening mammogram for malignant neoplasm of breast (principal)
CPT/HCPCS: 77063; 77067